=== PATIENT | male | born 1965 | race Caucasian/White ===

== ENCOUNTER 2022-06-08 13:10 | Emergency (ER) | payer MEDICAID ==
[~2022-06-08] VITALS: Ht 154.9 cm; Wt 75.9 kg
[2022-06-08] MEDS ORDERED: METF-283 PO (13:22)
[2022-06-08 13:33] VITALS: BP 145/84
[2022-06-08] MEDS: PROPARACAINE HCL 0.5% 15 ML OPHTHALMIC SOLUTION OS ONE (13:44)
[2022-06-08] MEDS ORDERED: FLUORESCEIN SODIUM 1 MG STRIP OD ONE (14:00)
[2022-06-08] MEDS: TOBRAMYCIN SULFATE 0.3% 5 ML OPHTHALMIC SOLUTION OS ONE (15:14)
[2022-06-08] MEDS: ALBUTEROL SULFATE HFA 90 MCG/PUFF 8 GM INHALER IH ONE (15:14)
== END 2022-06-08 15:24 | disposition home or self-care (01) ==
LOC: EMS 13:14
DX: S05.02XA Injury of conjunctiva and corneal abrasion without foreign body, left eye, initial encounter (principal); E11.9 Type 2 diabetes mellitus without complications; E78.00 Pure hypercholesterolemia, unspecified; J45.909 Unspecified asthma, uncomplicated; X58.XXXA Exposure to other specified factors, initial encounter; Y93.89 Activity, other specified; Y92.89 Other specified places as the place of occurrence of the external cause; Y99.8 Other external cause status; Z90.89 Acquired absence of other organs
CPT/HCPCS: 82962; 94640; 99283; J3535

== ENCOUNTER 2023-10-01 14:00 | Emergency (ER) | payer SELFPAY ==
[~2023-10-01] VITALS: Ht 154.9 cm; Wt 80.0 kg
[~2023-10-01 14:00] MED LIST: METF-283 PO
[2023-10-01 14:20] LABS: COVID AG,FIA SOURCE NASAL SWAB
[2023-10-01 14:21] LABS: GLUCOMETER DEV NAME(LOC) ERT.5; GLUCOSE,POINT OF CARE 331 MG/DL (70-110)
[2023-10-01 14:39] LABS: INFLUENZA TYPE A NEGATIVE FOR TYPE A (NEGATIVE); INFLUENZA TYPE B NEGATIVE FOR TYPE B (NEGATIVE)
[2023-10-01 14:40] LABS: SARS-COV2 (COVID) ANTIGEN,FIA Negative (Negative)
[2023-10-01 17:38] LABS: HEMATOCRIT 43.9 % (41-53); LYMPHOCYTES # (AUTO) 2.8 K/uL (1.0-4.8); LYMPHOCYTES % (AUTO) 32.9 % (22.0-44.0); MEAN CORPUSCULAR HEMOGLOBIN 31.5 pg (26.0-34.0); MEAN CORPUSCULAR HGB CONC 34.3 G/dL (31.0-37.0); MEAN CORPUSCULAR VOLUME 92 fL (80-100); MONOCYTES # (AUTO) 0.7 K/uL (0.1-1.0); MONOCYTES % (AUTO) 8.8 % (2.0-9.0); NEUTROPHILS # (AUTO) 4.8 K/uL (1.8-7.7); NEUTROPHILS % (AUTO) 56.3 % (40.0-70.0); PLATELET COUNT (AUTO) 264 K/uL (150-450); RED BLOOD CELL COUNT(AUTO) 4.77 MIL/uL (4.50-5.90); RED CELL DISTRIBUTION WIDTH 13.7 % (11.5-14.5); WHITE BLOOD COUNT (AUTO) 8.5 K/uL (4.5-11.0)
[2023-10-01 17:43] LABS: ANION GAP 11 mmol/L (8-16); CALCIUM, TOTAL 8.7 mg/dL (8.8-10.5); CARBON DIOXIDE 27 mmol/L (22-29); CHLORIDE 99 mmol/L (98-107); GLOMERULAR FILTR. RATE CALC > 60 mL/min (>60); GLUCOSE,RANDOM 321 mg/dL (70-110); POTASSIUM 3.3 mmol/L (3.5-5.1); SODIUM SERUM 137 mmol/L (136-145); UREA NITROGEN, BLOOD 15 mg/dL (7-18)
[2023-10-01] MEDS: SODIUM CHLORIDE 0.9% 1,000 ML IV ONE (17:43)
[2023-10-01 17:49] LABS: ALANINE AMINOTRANSFERASE 49 U/L (12-78); ALBUMIN 3.6 g/dL (3.4-5.0); ALKALINE PHOSPHATASE 119 U/L (46-116); ASPARTATE AMINOTRANSFERASE 18 U/L (15-37); BILIRUBIN,TOTAL 0.4 mg/dL (0.1-1.0); TOTAL PROTEIN, SERUM 7.5 g/dL (6.4-8.2)
[2023-10-01] MEDS ORDERED: AZIT250T9 PO (19:42)
[2023-10-01] MEDS ORDERED: METF-283 PO (19:42)
[2023-10-01] MEDS: AZITHROMYCIN 500 MG TABLET PO ONE (19:50)
[2023-10-01] MEDS: MetFORMIN HCL 500 MG TABLET PO ONE (19:50)
[2023-10-01 20:01] VITALS: BP 119/63; PULSE 69; RESP 18; TEMP 98.3
== END 2023-10-01 20:01 | disposition home or self-care (01) ==
LOC: EMS 14:00
DX: J40 Bronchitis, not specified as acute or chronic (principal); M25.562 Pain in left knee; E11.65 Type 2 diabetes mellitus with hyperglycemia; E78.00 Pure hypercholesterolemia, unspecified; Z90.49 Acquired absence of other specified parts of digestive tract; Z20.822 Contact with and (suspected) exposure to COVID-19
CPT/HCPCS: 99284; 96360; 71045; 87426; 80053; 82962; 85025; 87804; 36415; Q9967